=== PATIENT | male | born 1990 ===

== ENCOUNTER 2018-11-09 08:08 | Inpatient (IN) | payer MEDICAID ==
[2018-11-09 08:11] VITALS: BMI 21.2
--- NOTE | 2018-11-09 08:44 | ED PDOC ---
HPI: Psych/Substance Abuse Time Seen by Provider: 11/09/18 08:15 Chief Complaint (Nursing): Psychiatric Evaluation Chief Complaint (Provider): Psychiatric Evaluation History Per: Patient History/Exam Limitations: no limitations Onset/Duration Of Symptoms: Days Current Symptoms Are (Timing): Still Present Modifying Factor(s): Alcohol Associated Symptoms: Suicidal Thoughts. denies: Suicidal Plan Additional Complaint(s): 28 year old male with a past medical history of depression who is presenting to the ED for psychiatric evaluation. Patient states that he has had depression his whole life but admits that he has not seen a psychiatrist in many years. He also admits that he has a history of alcoholism and reports that he dabbles with other drugs. Patient states that he wants to end his life and reports that he is at his wits end. He admits that he was drinking a lot last night and now is presenting with suicidal ideation but no current plan but states that he wants everything to end. Of note, patient adds that he smokes weed and denies any homicidal ideation or hallucinations. He offers no other medical complaints at this time. PMD: none provided Past Medical History Reviewed: Historical Data, Nursing Documentation, Vital Signs Vital Signs: Last Vital Signs Temp 98.9 F 11/09/18 08:11 Pulse 103 H 11/09/18 08:11 Resp 18 11/09/18 08:11 BP 147/98 H 11/09/18 08:11 Pulse Ox 97 11/09/18 08:11 - Medical History PMH: Depression Denies: Chronic Kidney Disease - Surgical History Surgical History: No Surg Hx - Family History Family History: States: Unknown Family Hx - Social History Current smoker - smoking cessation education provided: No Alcohol: > 2 Drinks/Day Drugs: Cannabis, Other ("dabbles in other drugs") - Home Medications Home Medications: Ambulatory Orders Medication Instructions Recorded No Known Home Med 11/09/18 - Allergies Allergies/Adverse Reactions: Allergies Allergy/AdvReac Type Severity Reaction Status Date / Time No Known Allergies Allergy Verified 11/09/18 08:23 Review of Systems ROS Statement: Except As Marked, All Systems Reviewed And Found Negative Psych: Positive for: Suicidal ideation. Negative for: Other (homicidal ideation, hallucinations ) Physical Exam - Reviewed Nursing Documentation Reviewed: Yes Vital Signs Reviewed: Yes - Physical Exam Appears: Positive for: Non-toxic, No Acute Distress (teary eyed, and appears drunk ) Head Exam: Positive for: ATRAUMATIC, NORMAL INSPECTION, NORMOCEPHALIC Skin: Positive for: Normal Color, Warm, DRY Eye Exam: Positive for: EOMI, Normal appearance, PERRL ENT: Positive for: Normal ENT Inspection Neck: Positive for: Normal, Painless ROM Cardiovascular/Chest: Positive for: Regular Rate, Rhythm. Negative for: Murmur Respiratory: Positive for: Normal Breath Sounds. Negative for: Respiratory Distress Gastrointestinal/Abdominal: Positive for: Normal Exam, Soft. Negative for: Tenderness Extremity: Positive for: Normal ROM. Negative for: Deformity, Swelling Neurologic/Psych: Positive for: Alert, Oriented, Mood/Affect (flat ), Gait (st bala). Negative for: Motor/Sensory Deficits - Laboratory Results Result Diagrams: 11/09/18 08:48 11/09/18 08:48 - ECG O2 Sat by Pulse Oximetry: 97 (RA) Pulse Ox Interpretation: Normal Medical Decision Making Medical Decision Making: Time: 8:32 Plan: suicidal ideation, alchohol intox --EKG --Acetaminophen --Alcohol Serum --CMP --Urine Drug Screen --Salicylate --CBC --Urinalysis Patient was placed on a 1:1 Observation for stated suicidal ideation 9:25 Reevaluation: Patient sleeping comfortably in ED in no distress. 11:50 Patient states that he has been banging his head resulting in a headache, corroborated by mother. He is requesting Head CT. Head CT ordered. Head CT: FINDINGS: HEMORRHAGE: No intracranial hemorrhage. BRAIN: No mass effect or edema. No atrophy or chronic microvascular ischemic changes. VENTRICLES: Unremarkable. No hydrocephalus. CALVARIUM: Unremarkable. PARANASAL SINUSES: Large right maxillary sinus retention cyst and/or polyp. No bony erosion or remodeling seen. Much smaller left maxillary sinus retention cyst noted. Prominent rightward nasal septal spurring. MASTOID AIR CELLS: Unremarkable as visualized. No inflammatory changes. OTHER FINDINGS: None. IMPRESSION: No intracranial hemorrhage or mass effect. Right maxillary sinus large retention cyst and/or polyp. Smaller flatter retention cyst left maxillary sinus also suggested. Other findings as above. Pt accepted by Dr Burger for depression Scribe Attestation: Documented by Chanda Grant, acting as a scribe for Evelyn Carrillo MD. Provider Scribe Attestation: All medical record entries made by the Scribe were at my direction and personally dictated by me. I have reviewed the chart and agree that the record accurately reflects my personal performance of the history, physical exam, medical decision making, and the department course for this patient. I have also personally directed, reviewed, and agree with the discharge instructions and disposition. Disposition - Clinical Impression Clinical Impression: Depression - Patient ED Disposition Is Patient to be Admitted: Yes - Disposition Disposition Time: 13:00 Condition: STABLE
[2018-11-09 09:09] LABS: BASO # 0.1 K/uL (0.0-0.2); BASO % 0.5 % (0.0-2.0); EOS % 0.4 % (0.0-4.0); HEMOGLOBIN 16.7 g/dL (12.0-18.0); LYMPH # 1.8 K/uL (1.0-4.3); LYMPH % 17.8 % (20.0-40.0); MEAN CELL VOLUME 96.3 fl (80.0-94.0); MEAN CORPUSCULAR HEMOGLOBIN 31.9 pg (27.0-31.0); MEAN CORPUSCULAR HGB CONC 33.1 g/dL (33.0-37.0); MONO # 0.7 K/uL (0.0-0.8); MONO % 6.5 % (0.0-10.0); NEUT # 7.4 K/uL (1.8-7.0); NEUT % 74.8 % (50.0-75.0); RBC 5.24 Mil/uL (4.40-5.90); RED CELL DISTRIBUTION WIDTH 15.7 % (11.5-14.5); WHITE BLOOD COUNT 9.9 K/uL (4.8-10.8)
[2018-11-09 09:14] LABS: ACETAMINOPHEN < 10.0 ug/ml (10.0-30.0); SALICYLATE < 1.0 mg/dl
[2018-11-09 09:15] LABS: ALB/GLOB RATIO 1.4 (1.0-2.1); ALBUMIN 4.8 g/dL (3.5-5.0); ALT/SGPT 21 U/L (21-72); AST/SGOT 25 U/L (17-59); BLOOD UREA NITROGEN 7 mg/dl (9-20); CALCIUM 8.8 mg/dL (8.4-10.2); GFR NON-AFRICAN AMERICAN > 60
--- NOTE | 2018-11-09 10:31 | CARD ---
APPROVED REPORT Date of service: 11/09/2018 EKG Measurement Heart [id number] <Conclusion> Normal sinus rhythm Rightward axis Borderline ECG
[2018-11-09 11:56] LABS: SQUAMOUS EPITHIAL < 1 /hpf (0-5); URINE BILIRUBIN NEGATIVE (NEGATIVE); URINE BLOOD NEGATIVE (NEGATIVE); URINE CLARITY SLIGHTY-CLOUDY (Clear); URINE COLOR YELLOW (YELLOW); URINE GLUCOSE (UA) NEG (NEGATIVE); URINE LEUKOCYTE ESTERASE NEG Leu/uL (Negative); URINE PROTEIN NEGATIVE (NEGATIVE); URINE UROBILINOGEN 0.2-1.0 mg/dL (0.2-1.0)
[2018-11-09 12:16] LABS: BARBITURATES, UR NEGATIVE (NEGATIVE); BENZODIAZEPINES, UR POSITIVE (NEGATIVE); OPIATES, UR POSITIVE (NEGATIVE); PHENCYCLIDINE, UR NEGATIVE (NEGATIVE)
--- NOTE | 2018-11-09 13:07 | CT ---
Date of service: 11/09/2018 PROCEDURE: CT HEAD WITHOUT CONTRAST. HISTORY: banging head COMPARISON: None available. TECHNIQUE: Axial computed tomography images were obtained through the head/brain without intravenous contrast. Radiation dose: Total exam DLP = 898.42 mGy-cm. This CT exam was performed using one or more of the following dose reduction techniques: Automated exposure control, adjustment of the mA and/or kV according to patient size, and/or use of iterative reconstruction technique. FINDINGS: HEMORRHAGE: No intracranial hemorrhage. BRAIN: No mass effect or edema. No atrophy or chronic microvascular ischemic changes. VENTRICLES: Unremarkable. No hydrocephalus. CALVARIUM: Unremarkable. PARANASAL SINUSES: Large right maxillary sinus retention cyst and/or polyp. No bony erosion or remodeling seen. Much smaller left maxillary sinus retention cyst noted. Prominent rightward nasal septal spurring. MASTOID AIR CELLS: Unremarkable as visualized. No inflammatory changes. OTHER FINDINGS: None. IMPRESSION: No intracranial hemorrhage or mass effect. Right maxillary sinus large retention cyst and/or polyp. Smaller flatter retention cyst left maxillary sinus also suggested. Other findings as above.
[2018-11-09] MEDS ORDERED: DiphenhydrAMINE 50 mg/ml Inj IM PRN (15:09)
[2018-11-09] MEDS ORDERED: Alum-Mag Hydrox-Simethicone Susp (30 mL) PO PRN (15:09)
[2018-11-09] MEDS ORDERED: Magnesium Hydroxide Susp 30 ml UD PO PRN (15:09)
--- NOTE | 2018-11-09 15:53 | CP.PCM.CON ---
<Faiza Aceves - Last Filed: 11/09/18 15:48> History of Present Illness - History of Present Illness History of Present Illness: Hospitalist Consult Note: 28 year old male patient, with PMHx of depression, admitted to psych for depression and suicidal ideation. Patient states that he came to the ED yesterday after "going crazy" and "having crazy thoughts". He states that he drank alcohol yesterday before he came to the ED and while he was intoxicated he banged his head against the wall. He now admits to a bad head ache that he wants to try to sleep off. Unable to obtain full history, patient inebriated at this time. Denies nausea/vomiting/fever/shortness of breath/chest pain/chills, admits to sensitivity to light and headache. PMD: Denies PMHx: Depression PSHx: Denies SHx: Tobacco use (10 cigarettes a day for 15 years), alcohol abuse, illicit drug use "I have dabbled with everything under the sun" ALL: NKDA Review of Systems - Review of Systems Systems not reviewed;Unavailable: Intoxicated - Constitutional Constitutional: Lethargy. absent: Chills - EENT Eyes: As Per HPI - Cardiovascular Cardiovascular: As Per HPI - Respiratory Respiratory: absent: Cough, Wheezing - Gastrointestinal Gastrointestinal: As Per HPI - Genitourinary Genitourinary: As Per HPI - Musculoskeletal Musculoskeletal: As Per HPI - Integumentary Integumentary: As Per HPI - Neurological Neurological: As Per HPI - Psychiatric Psychiatric: Suicidal Ideation - Endocrine Endocrine: As Per HPI - Hematologic/Lymphatic Hematologic: As Per HPI Past Patient History - Infectious Disease Hx of Infectious Diseases: None - Past Social History Smoking Status: Heavy Smoker > 10 Cigarettes Daily Alcohol: > 2 Drinks/Day Drugs: Cannabis, Other ("dabbles in other drugs") - CARDIAC Hx Cardiac Disorders: No Hx Hypertension: No - PULMONARY Hx Tuberculosis: No - NEUROLOGICAL HX Cerebrovascular Accident: No Hx Seizures: No - HEENT Hx HEENT Problems: No - RENAL Hx Chronic Kidney Disease: No - ENDOCRINE/METABOLIC Hx Endocrine Disorders: No - HEMATOLOGICAL/ONCOLOGICAL Hx Cancer: No Hx Human Immunodeficiency Virus (HIV): No - INTEGUMENTARY Hx Dermatological Problems: No - MUSCULOSKELETAL/RHEUMATOLOGICAL Hx Musculoskeletal Disorders: No - GASTROINTESTINAL Hx Gastrointestinal Disorders: No - GENITOURINARY/GYNECOLOGICAL Hx Sexually Transmitted Disorders: No - PSYCHIATRIC Hx Depression: Yes - SURGICAL HISTORY Hx Surgeries: No - ANESTHESIA Hx Anesthesia: No Meds Allergies/Adverse Reactions: Allergies Allergy/AdvReac Type Severity Reaction Status Date / Time No Known Allergies Allergy Verified 11/09/18 08:23 - Medications Medications: Current Medications Acetaminophen (Tylenol 325mg Tab) 650 mg PO Q4 PRN PRN Reason: Pain, moderate (4-7) Last Admin: 11/09/18 15:24 Dose: 650 mg Al Hydrox/Mg Hydrox/Simethicone (Maalox Plus 30 Ml) 30 ml PO Q4 PRN PRN Reason: Dyspepsia Chlordiazepoxide (Librium) 25 mg PO TID HIGINIO Clonidine HCl (Catapres) 0.1 mg PO TID PRN PRN Reason: Opiate reversal Diphenhydramine HCl (Benadryl) 50 mg IM Q6 PRN PRN Reason: Extrapyramidal S/S Unable PO Diphenhydramine HCl (Benadryl) 50 mg PO Q6 PRN PRN Reason: Extrapyramidal Symptoms Gabapentin (Neurontin) 100 mg PO TID HIGINIO Haloperidol (Haldol) 5 mg PO Q4 PRN PRN Reason: Agitation Haloperidol Lactate (Haldol) 5 mg IM Q4 PRN PRN Reason: Agitation, Unable to Take PO Lorazepam (Ativan) 2 mg IM Q4 PRN PRN Reason: Anxiety/Agitation,Unable PO Lorazepam (Ativan) 2 mg PO Q4 PRN PRN Reason: Anxiety/Agitation Magnesium Hydroxide (Milk Of Magnesia) 30 ml PO HS PRN PRN Reason: Constipation Trazodone HCl (Desyrel) 100 mg PO HS HIGINIO Physical Exam - Constitutional Appears: No Acute Distress Additional comments: Patient intoxicated at this time - Head Exam Head Exam: ATRAUMATIC, NORMOCEPHALIC - ENT Exam ENT Exam: Mucous Membranes Moist - Respiratory Exam Respiratory Exam: Clear to Auscultation Bilateral, NORMAL BREATHING PATTERN - Cardiovascular Exam Cardiovascular Exam: Tachycardia, REGULAR RHYTHM - GI/Abdominal Exam GI & Abdominal Exam: Normal Bowel Sounds, Soft - Extremities Exam Extremities exam: Positive for: normal inspection. Negative for: calf tenderness - Back Exam Back exam: CVA tenderness (L), NORMAL INSPECTION - Neurological Exam Neurological exam: Normal Gait, Oriented x3 - Psychiatric Exam Psychiatric exam: Suicidal Ideation - Skin Skin Exam: Warm Results - Vital Signs Recent Vital Signs: Last Vital Signs Temp 98.7 F 11/09/18 14:10 Pulse 86 11/09/18 14:10 Resp 17 11/09/18 14:10 BP 117/58 L 11/09/18 14:10 Pulse Ox 97 11/09/18 14:10 - Labs Result Diagrams: 11/09/18 08:48 11/09/18 08:48 Labs: Laboratory Results - last 24 hr 11/09/18 11/09/18 11/09/18 08:48 08:48 08:48 WBC 9.9 RBC 5.24 Hgb 16.7 Hct 50.5 MCV 96.3 H MCH 31.9 H MCHC 33.1 RDW 15.7 H Plt Count 365 MPV 7.0 L Neut % (Auto) 74.8 Lymph % (Auto) 17.8 L [place] % (Auto) 6.5 Eos % (Auto) 0.4 Baso % (Auto) 0.5 Neut # (Auto) 7.4 H Lymph # (Auto) 1.8 [place] # (Auto) 0.7 Eos # (Auto) 0.0 Baso # (Auto) 0.1 Sodium 147 Potassium 4.4 Chloride 103 Carbon Dioxide 28 Anion Gap 20 BUN 7 L Creatinine 0.8 Est GFR ( Amer) > 60 Est GFR (Non-Af Amer) > 60 Random Glucose 96 Calcium 8.8 Total Bilirubin 0.2 AST 25 ALT 21 Alkaline Phosphatase 65 Total Protein 8.2 Albumin 4.8 Globulin 3.4 Albumin/Globulin Ratio 1.4 Urine Color Urine Clarity Urine pH Ur Specific [place] Urine Protein Urine Glucose (UA) Urine Ketones Urine Blood Urine Nitrate Urine Bilirubin Urine Urobilinogen Ur Leukocyte Esterase Urine RBC (Auto) Urine Microscopic WBC Ur Squamous Epith Cells Salicylates < 1.0 Urine Opiates Screen Urine Methadone Screen Acetaminophen < 10.0 L Ur Barbiturates Screen Ur Phencyclidine Scrn Ur Amphetamines Screen U Benzodiazepines Scrn U Oth Cocaine Metabols U Cannabinoids Screen Alcohol, Quantitative 257 H 11/09/18 11/09/18 11:30 11:30 WBC RBC Hgb Hct MCV MCH MCHC RDW Plt Count MPV Neut % (Auto) Lymph % (Auto) [place] % (Auto) Eos % (Auto) Baso % (Auto) Neut # (Auto) Lymph # (Auto) [place] # (Auto) Eos # (Auto) Baso # (Auto) Sodium Potassium Chloride Carbon Dioxide Anion Gap BUN Creatinine Est GFR ( Amer) Est GFR (Non-Af Amer) Random Glucose Calcium Total Bilirubin AST ALT Alkaline Phosphatase Total Protein Albumin Globulin Albumin/Globulin Ratio Urine Color Yellow Urine Clarity Slighty-cloudy Urine pH 6.0 Ur Specific [place] 1.023 Urine Protein Negative Urine Glucose (UA) Neg Urine Ketones Trace Urine Blood Negative Urine Nitrate Negative Urine Bilirubin Negative Urine Urobilinogen 0.2-1.0 Ur Leukocyte Esterase Neg Urine RBC (Auto) 3 Urine Microscopic WBC 1 Ur Squamous Epith Cells < 1 Salicylates Urine Opiates Screen Positive H Urine Methadone Screen Negative Acetaminophen Ur Barbiturates Screen Negative Ur Phencyclidine Scrn Negative Ur Amphetamines Screen Negative U Benzodiazepines Scrn Positive U Oth Cocaine Metabols Negative U Cannabinoids Screen Positive H Alcohol, Quantitative Assessment & Plan - Assessment and Plan (Free Text) Assessment: 28 year old male patient with PMHx of depression, admitted to psych for depression and suicidal ideation. Plan: 1. Depression/Suicidal Ideation - Management per psych 2. Alcohol Abuse - Management per psych 3. Tobacco use - Management per psych 4. Head trauma - Head CT: No intracranial hemorrhage or mass effect. - C/w pain management, Tylenol - Date & Time Date: 11/09/18 Time: 15:56 <Pat Benton - Last Filed: 11/09/18 17:33> Meds - Medications Medications: Current Medications Acetaminophen (Tylenol 325mg Tab) 650 mg PO Q4 PRN PRN Reason: Pain, moderate (4-7) Last Admin: 11/09/18 15:24 Dose: 650 mg Al Hydrox/Mg Hydrox/Simethicone (Maalox Plus 30 Ml) 30 ml PO Q4 PRN PRN Reason: Dyspepsia Chlordiazepoxide (Librium) 25 mg PO TID HIGINIO Clonidine HCl (Catapres) 0.1 mg PO TID PRN PRN Reason: Opiate reversal Diphenhydramine HCl (Benadryl) 50 mg IM Q6 PRN PRN Reason: Extrapyramidal S/S Unable PO Diphenhydramine HCl (Benadryl) 50 mg PO Q6 PRN PRN Reason: Extrapyramidal Symptoms Gabapentin (Neurontin) 100 mg PO TID HIGINIO Haloperidol (Haldol) 5 mg PO Q4 PRN PRN Reason: Agitation Haloperidol Lactate (Haldol) 5 mg IM Q4 PRN PRN Reason: Agitation, Unable to Take PO Lorazepam (Ativan) 2 mg IM Q4 PRN PRN Reason: Anxiety/Agitation,Unable PO Lorazepam (Ativan) 2 mg PO Q4 PRN PRN Reason: Anxiety/Agitation Magnesium Hydroxide (Milk Of Magnesia) 30 ml PO HS PRN PRN Reason: Constipation Trazodone HCl (Desyrel) 100 mg PO HS HIGINIO Results - Vital Signs Recent Vital Signs: Last Vital Signs Temp 98.7 F 11/09/18 14:10 Pulse 86 11/09/18 14:10 Resp 17 11/09/18 14:10 BP 117/58 L 11/09/18 14:10 Pulse Ox 97 11/09/18 14:10 - Labs Result Diagrams: 11/09/18 08:48 11/09/18 08:48 Labs: Laboratory Results - last 24 hr 11/09/18 11/09/18 11/09/18 08:48 08:48 08:48 WBC 9.9 RBC 5.24 Hgb 16.7 Hct 50.5 MCV 96.3 H MCH 31.9 H MCHC 33.1 RDW 15.7 H Plt Count 365 MPV 7.0 L Neut % (Auto) 74.8 Lymph % (Auto) 17.8 L [place] % (Auto) 6.5 Eos % (Auto) 0.4 Baso % (Auto) 0.5 Neut # (Auto) 7.4 H Lymph # (Auto) 1.8 [place] # (Auto) 0.7 Eos # (Auto) 0.0 Baso # (Auto) 0.1 Sodium 147 Potassium 4.4 Chloride 103 Carbon Dioxide 28 Anion Gap 20 BUN 7 L Creatinine 0.8 Est GFR ( Amer) > 60 Est GFR (Non-Af Amer) > 60 Random Glucose 96 Calcium 8.8 Total Bilirubin 0.2 AST 25 ALT 21 Alkaline Phosphatase 65 Total Protein 8.2 Albumin 4.8 Globulin 3.4 Albumin/Globulin Ratio 1.4 Urine Color Urine Clarity Urine pH Ur Specific [place] Urine Protein Urine Glucose (UA) Urine Ketones Urine Blood Urine Nitrate Urine Bilirubin Urine Urobilinogen Ur Leukocyte Esterase Urine RBC (Auto) Urine Microscopic WBC Ur Squamous Epith Cells Salicylates < 1.0 Urine Opiates Screen Urine Methadone Screen Acetaminophen < 10.0 L Ur Barbiturates Screen Ur Phencyclidine Scrn Ur Amphetamines Screen U Benzodiazepines Scrn U Oth Cocaine Metabols U Cannabinoids Screen Alcohol, Quantitative 257 H 11/09/18 11/09/18 11:30 11:30 WBC RBC Hgb Hct MCV MCH MCHC RDW Plt Count MPV Neut % (Auto) Lymph % (Auto) [place] % (Auto) Eos % (Auto) Baso % (Auto) Neut # (Auto) Lymph # (Auto) [place] # (Auto) Eos # (Auto) Baso # (Auto) Sodium Potassium Chloride Carbon Dioxide Anion Gap BUN Creatinine Est GFR ( Amer) Est GFR (Non-Af Amer) Random Glucose Calcium Total Bilirubin AST ALT Alkaline Phosphatase Total Protein Albumin Globulin Albumin/Globulin Ratio Urine Color Yellow Urine Clarity Slighty-cloudy Urine pH 6.0 Ur Specific [place] 1.023 Urine Protein Negative Urine Glucose (UA) Neg Urine Ketones Trace Urine Blood Negative Urine Nitrate Negative Urine Bilirubin Negative Urine Urobilinogen 0.2-1.0 Ur Leukocyte Esterase Neg Urine RBC (Auto) 3 Urine Microscopic WBC 1 Ur Squamous Epith Cells < 1 Salicylates Urine Opiates Screen Positive H Urine Methadone Screen Negative Acetaminophen Ur Barbiturates Screen Negative Ur Phencyclidine Scrn Negative Ur Amphetamines Screen Negative U Benzodiazepines Scrn Positive U Oth Cocaine Metabols Negative U Cannabinoids Screen Positive H Alcohol, Quantitative Attending/Attestation - Attestation I have personally seen and examined this patient.: Yes I have fully participated in the care of the patient.: Yes I have reviewed all pertinent clinical information: Yes Notes (Text): 11/09/18 17:33 Agree with findings and plan as above.
--- NOTE | 2018-11-09 19:45 | PCM.BM ---
<ChayaNoemi - Last Filed: 11/09/18 19:43> Treatment Plan Problems - Problems identified on initial assessmt Hopelessness/Helplessness Date Initiated: 11/09/18 Time Initiated: 19:43 Assessment reference: NA Status: Active Denial Date Initiated: 11/09/18 Time Initiated: 19:45 Assessment reference: NA Status: Active Knowledge Deficit Alcohol Date Initiated: 11/09/18 Time Initiated: 19:46 Assessment reference: NA Altered Sleep Problems Date Initiated: 11/09/18 Time Initiated: 19:47 Assessment reference: NA Status: Active Treatment assets and liabiliti Patient Assests: cooperative, ADL independent, good support system Patient Liabilities: relationship conflicts, substance abuse - Milieu Protocol Maintain good personal hygiene: daily Encourage regular showers, every shift Remind patient to perform daily oral care, every shift Assist patient to perform ADL's Conduct patient checks and document Observation sheet: Q15 minutes Maintain personal safety: every shift Educate patient to report safety concerns to staff, every shift Monitor environment for contraband/sharps Medication safety: Monitor for expected outcome, potential side effects: every shift, Assess barriers to learning: every shift, Assess readiness for medication education: every shift <Becca Nicole - Last Filed: 11/13/18 12:19> - Diagnosis (1) Bipolar I disorder Status: Acute Interventions: 11/11/18 15:11 psychotherapy, pharmacotherapy (2) Alcohol abuse Status: Acute Interventions: 11/11/18 15:12 motivational therapy <PhilippJoe Carmona - Last Filed: 11/13/18 16:06> Family Contact Family involvement: Family/SO is involved Family contact: Patient agrees to contact, Family has been contacted by patient, Telephone contact initiated by staff Family contact name: Laverne - Cousin Family contacted how many times per week?: 4 Family contact comment: Pan Shover met with pt's cousin (Laverne) and her (Kan) to gain collateral and assess possible progress on the unit. Laverne reported that pt appeared tired and restless. Laverne reported that pt will often cycle in and out of "depression" and these "episodes" will last several days to a week. Laverne reported that pt's child's mother is often the cause of these e pisodes as she is "manipulative" and causes the pt to have a lot of "panic" and "anxiety." Laverne reported that pt and his girlfriend were together for 3 years, but have not been together for about 2 years. Laverne reported that on the night of admission pt called her intoxicated and made suicidal statements that scared her and she convinced pt to come to the hospital for help. Laverne reported that when pt goes through his depressed phases he can become violent toward objects and hurt himself in the process by punching dimas and banging his head. - Goals for Treatment Patient goals for treatment: Pt unable to provide specific treatment goals at this time due to psychosis and delusions of grandeur and poor insight. Patient's family/SO goals for treatment: Pt's family would like pt to be stabilized on medications and to get psychoeducation on pt's diagnosis, expected symptoms and included in discharge planning. Discharge/Continuing Care - Education Needs Education Needs: Family Medication, Family Diagnosis/Disease Process, Family Coping Skills, Family Aftercare Safety Plan, Patient Medication, Patient Diagnosis/Disease Process, Patient Coping Skills, Patient Aftercare Safety Plan - Discharge Discharge Criteria: Tolerates medication w/o severe side effects, Free of Suicidal thoughts, Free of agitation, Normal sleep pattern, Ability to care for self, Reduction of target symptoms Discharge to:: Home, With Family - Treatment Team Participation Patient/Family/SO Statement: 11/13/18 16:05 Pt seen in treatment team on 11/11/18. Pt reported he feels "good." Pt reported he signed himself in for treatment due to suicidal ideations and extreme depression. Pt presented with disorganized, tangential speech. Pt denied current SI/HI and AVT hallucinations. Pt has poor insight and judgment. Discussed with Family/SO: Yes Was Patient/Family/SO present at Treatment Team Meeting: Yes
--- NOTE | 2018-11-10 13:58 | PCM.PSYCH ---
Initial Psychiatric Evaluation - Initial Psychiatric Evaluation Type of Admission: Voluntary Legal Status: Capacity Chief Complaint (in patient's own words): I have been depressed all my life History of Present Illness and Precipitating Events: pt is a 28 ys old male with previous diagnosis of depression and poly substance use , presented to ER with suicidal ideation with plan to overdose on alcohol pt has been increasingly depressed due to financial difficulties, also having conflict with his girl friend , and unable to see his son pt has been feeling worthless, hopeless and helpless, using increasing amounts of alcohol and opiates on the unit pt continues to present with depressed mood and affect, poor motivation, low interest, continues to report passive suicidal ideation without active plan , denied command hallucinations urine toxicology positive for opiates and cannabis Current Medications: Active Medications Generic Name Dose Route Start Last Admin Trade Name Freq PRN Reason Stop Dose Admin Acetaminophen 650 mg 11/09/18 15:09 11/09/18 15:24 Tylenol 325mg Tab PO 650 mg Q4 PRN Administration Pain, moderate (4-7) Al Hydrox/Mg Hydrox/Simethicone 30 ml 11/09/18 15:09 Maalox Plus 30 Ml PO Q4 PRN Dyspepsia Chlordiazepoxide 25 mg 11/09/18 17:00 11/10/18 13:16 Librium PO 25 mg TID HIGINIO Administration Clonidine HCl 0.1 mg 11/09/18 15:16 Catapres PO TID PRN Opiate reversal Diphenhydramine HCl 50 mg 11/09/18 15:09 Benadryl IM Q6 PRN Extrapyramidal S/S Unable PO Diphenhydramine HCl 50 mg 11/09/18 15:09 11/10/18 01:36 Benadryl PO 50 mg Q6 PRN Administration Extrapyramidal Symptoms Diphenhydramine HCl 50 mg 11/10/18 01:33 Benadryl PO HS PRN Sleep Gabapentin 100 mg 11/09/18 17:00 11/10/18 13:15 Neurontin PO 100 mg TID HIGINIO Administration Haloperidol 5 mg 11/09/18 15:09 Haldol PO Q4 PRN Agitation Haloperidol Lactate 5 mg 11/09/18 15:09 Haldol IM Q4 PRN Agitation, Unable to Take PO Lorazepam 2 mg 11/09/18 15:09 Ativan IM Q4 PRN Anxiety/Agitation,Unable PO Lorazepam 2 mg 11/09/18 15:09 Ativan PO Q4 PRN Anxiety/Agitation Magnesium Hydroxide 30 ml 11/09/18 15:09 Milk Of Magnesia PO HS PRN Constipation Trazodone HCl 100 mg 11/09/18 22:00 11/09/18 21:04 Desyrel PO 100 mg HS HIGINIO Administration Past Psychiatric History - Past Psychiatric History Explanation of prior treatment: multiple hospitalizations, hx of non compliance History of ETOH/Drug Use: alcohol opiates cannabis Pertinent Medical Hx (Current Medical&Sleep Prob, Allergies): Allergies Allergy/AdvReac Type Severity Reaction Status Date / Time No Known Allergies Allergy Verified 11/09/18 08:23 No Known Home Med 11/09/18 Mental Status Examination - Personal Presentation Personal Presentation: Looks stated age - Affect Affect: Constricted, Depressed - Motor Activity Motor Activity: Psychomotor Retardation - Reliability in Providing Information Reliability in Providing Information: Fair - Speech Speech: Relevant - Mood Mood: Depressed, Anxious - Formal Thought Process Formal Thought Process: Circumstantial - Obsessions/Compulsions Obsessions: No Compulsions: No - Cognitive Functions Orientation: Person, Place, Situation Sensorium: Alert Attention/Concentration: Easily distracted Abstract Thinking: [place] Judgement: Imparied, as evidence by: Poor judgement, Imparied, as evidence by: Lack of insight into illness - Risk Risk: Suicidal, Withdrawal, Diminished functioning - Strength & Assets Inventory Strength & Assets Inventory: Family support - Limitations Additional comments: poor compliance DSM 5 DX - DSM 5 DSM 5 Diagnosis: major depression/ rule out bipolar disorder depressed opiate dependence alcohol dependence - Recommended/Plan of Treatment Treatment Recommendations and Plan of Treatment: pt will be started on librium protocol and monitored for symtoms and signs of alcohol withdrawal neurontin 100 mg tid seroquel 100mg qhs, increase gradually motivational group and supportive therapy
--- NOTE | 2018-11-11 15:23 | PCM.PYCHPN ---
Psychiatric Progress Note - Psychiatric Progress Note Patient seen today, length of contact: pt evaluated discussed with team chart reviewed Patient Chief Complaint: I could not find my way in life Problems Identified/Issues Discussed: pt evaluated with treatment team, presenting with pressured speech, thought process circumstantial and tangential,affect labile with mood swings at instant laughing alternating with tearful episodes, pt also presenting with grandiose delusions, discussed with pt the need to start mood stabilizer, also discussed impact of alcohol use on current mental status pt continues to report passive suicidal ideation without active plan on the unit, denied perceptual disturbances, denied homicidal ideation Medical Problems: multiple hospitalizations, hx of non compliance DSM 5 Symptoms Update: bipolar I disorder mixed severe alcohol abuse opiate abuse Medication Change: Yes (start abilify) Medical Record Reviewed: Yes Mental Status Examination - Cognitive Function Orientation: Person, Place, Situation Attention: WNL Concentration: WNL Association: WNL Fund of Knowledge: [facility] Decription of patient's judgement and insights: poor insight and judgment - Mood Mood: Depressed, Anxious - Affect Affect: Constricted, Depressed - Speech Speech: Pressured - Formal Thought Process Formal Thought Process: Delusions, Circumstantial Psychotic Thoughts and Behaviors: grandiose delusions - Suicidal Ideation Suicidal Ideation: Yes - Homicidal Ideation Homicidal Ideation: No Goal/Treatment Plan - Goal/Treatment Plan Need for Continued Stay: Severe depression anxiety, Discharge may exacerbated symptoms Progress Toward Problem(s) and Goals/Treatment Plan: discontinue librium. continue with ativan prn while monitoring for symtoms and signs of alcohol withdrawal increase neurontin 200 mg tid discontinue seroquel 100mg qhs, start abilify motivational group and supportive therapy
--- NOTE | 2018-11-12 14:06 | PCM.PYCHPN ---
Psychiatric Progress Note - Psychiatric Progress Note Patient seen today, length of contact: pt evaluated discussed with team chart reviewed Patient Chief Complaint: I am still depressed Problems Identified/Issues Discussed: pt evaluated . presenting with depressed mood and labile affect, over productive speech and grandiose delusions, isolates himself in his room, encouraged pt to attend groups, no reported side effects of medications , pt continues to report passive suicidal ideation without active plan on the unit, denied perceptual disturbances, denied homicidal ideation Medical Problems: multiple hospitalizations, hx of non compliance DSM 5 Symptoms Update: bipolar I disorder mixed severe with psychotic features opiate abuse alcohol abuse cannabis abuse Medication Change: No Medical Record Reviewed: Yes Mental Status Examination - Cognitive Function Orientation: Person, Place, Situation Attention: WNL Concentration: WNL Association: WNL Fund of Knowledge: WN Decription of patient's judgement and insights: poor insight and judgment - Mood Mood: Depressed, Anxious - Affect Affect: Constricted, Depressed - Speech Speech: Pressured - Formal Thought Process Formal Thought Process: Delusions, Circumstantial Psychotic Thoughts and Behaviors: grandiose delusions - Suicidal Ideation Suicidal Ideation: Yes - Homicidal Ideation Homicidal Ideation: No Goal/Treatment Plan - Goal/Treatment Plan Need for Continued Stay: Severe depression anxiety, Discharge may exacerbated symptoms Progress Toward Problem(s) and Goals/Treatment Plan: abilify 10mg daily neurontin 200 mg tid motivational group and supportive therapy
[2018-11-12 21:44] VITALS: O2SAT 99
--- NOTE | 2018-11-13 12:25 | PCM.PYCHPN ---
Psychiatric Progress Note - Psychiatric Progress Note Patient seen today, length of contact: pt evaluated discussed with team chart reviewed Patient Chief Complaint: I have lots of goals in life Problems Identified/Issues Discussed: pt evaluated . presenting labile affect, speech overproductive with circumstantial thought process, and grandiose delusions,discussed gradual increase in the dose of abilify, motivational therapy provided in reference to effect of opiate and alcohol use on current mental status pt continues to report passive suicidal ideation without active plan on the unit, denied perceptual disturbances, denied homicidal ideation Medical Problems: multiple hospitalizations, hx of non compliance DSM 5 Symptoms Update: bipolar II disorder mixed severe Medication Change: Yes (increase abilify) Medical Record Reviewed: Yes Mental Status Examination - Cognitive Function Orientation: Person, Place, Situation Attention: WNL Concentration: WNL Association: WNL Fund of Knowledge: WN Decription of patient's judgement and insights: poor insight and judgment - Mood Mood: Depressed, Anxious - Affect Affect: Constricted, Depressed - Speech Speech: Pressured - Formal Thought Process Formal Thought Process: Delusions, Circumstantial Psychotic Thoughts and Behaviors: grandiose delusions - Suicidal Ideation Suicidal Ideation: No - Homicidal Ideation Homicidal Ideation: No Goal/Treatment Plan - Goal/Treatment Plan Need for Continued Stay: Severe depression anxiety, Discharge may exacerbated symptoms Progress Toward Problem(s) and Goals/Treatment Plan: increase abilify gradually decrease neurontin 100 mg tid/ prn motivational group and supportive therapy
--- NOTE | 2018-11-14 12:33 | PCM.PYCHPN ---
Psychiatric Progress Note - Psychiatric Progress Note Patient seen today, length of contact: pt evaluated discussed with team chart reviewed Patient Chief Complaint: I want to take care of my mental health Problems Identified/Issues Discussed: pt evaluated .speech less pressured, thought process circumstantial but more goal directed, continues to have grandiose thoughts, psycho education provided about the bipolar disorder diagnosis and motivational therapy provided about effect of substance use and its effect on the prognosis pt reporting improved mood and denied any current active thoughts of self harm, reported decreased sleep with early insomnia discussed increasing dose of trazodone , pt denied perceptual disturbances, denied homicidal ideation Medical Problems: multiple hospitalizations, hx of non compliance DSM 5 Symptoms Update: bipolar disorder MRE mixed severe cannabis abuse alcohol abuse opiate abuse Medication Change: No (increase abilify) Medical Record Reviewed: Yes Mental Status Examination - Cognitive Function Orientation: Person, Place, Situation Attention: WNL Concentration: WNL Association: WNL Fund of Knowledge: [facility] Decription of patient's judgement and insights: poor insight and judgment - Mood Mood: Anxious - Affect Affect: Broad - Speech Speech: Pressured - Formal Thought Process Formal Thought Process: Delusions, Circumstantial Psychotic Thoughts and Behaviors: grandiose delusions - Suicidal Ideation Suicidal Ideation: No - Homicidal Ideation Homicidal Ideation: No Goal/Treatment Plan - Goal/Treatment Plan Need for Continued Stay: Severe depression anxiety, Discharge may exacerbated symptoms Progress Toward Problem(s) and Goals/Treatment Plan: abilify 20 mg qhs neurontin 100 mg tid/ prn motivational group and supportive therapy
[2018-11-15 10:27] VITALS: BP 146/85; PULSE 72; RESP 17; TEMP 97.1
--- NOTE | 2018-11-15 11:37 | PCM.PYCHDC ---
Mental Status Examination - Mental Status Examination Orientation: Person, Place, Situation Memory: Intact Mood: Neutral Affect: Broad Speech: Appropriate Attention: WNL Concentration: WNL Association: WNL Fund of Knowledge: WNL Formal Thought Process: No Impairment Description of patient's judgement and insight: partial insight and fair judgment Psychotic Thoughts and Behaviors: pt on dischage denied perceptual disturbances non elicited Suicidal Ideation: No Current Homicidal Ideation?: No Discharge Summary - Discharge Note Reason for Hospitalization: pt is a 28 ys old male with previous diagnosis of depression and poly substance use , presented to ER with suicidal ideation with plan to overdose on alcohol pt has been increasingly depressed due to financial difficulties, also having conflict with his girl friend , and unable to see his son pt has been feeling worthless, hopeless and helpless, using increasing amounts of alcohol and opiates on the unit pt continues to present with depressed mood and affect, poor motivation, low interest, continues to report passive suicidal ideation without active plan , denied command hallucinations urine toxicology positive for opiates and cannabis Consultations:: List each consultation separately and include: 1. Reason for request. 2. Findings. 3. Follow-up Summary of Hospital Course include:: 1. Description of specific treatment plan utilized for patients during their course of treatmen. 2. Summarize the time- course for resolution of acute symptoms and/or regressed behaviors. 3. Describe issues identified and worked on during hospitalization. 4. Describe medication utilized. 5. Describe medical problems identified and treated. 6. Reassessment of suicide risk Summary of Hospital Course: pt i on admission presented with mixed episode, depressed mood , increased irritability, labile affect, and grandiose delusions pt was placed on librium and clonidine protocol/ monitored for symptoms and signs of withdrawal pt was placed on abilify it was increase gradually to 20mg qhs psycho education provided n reference to diagnosis and medication compliance motivational therapy provided in reference to substance use pt was compliant with treatment attended groups , no reported side effects of medications on discharge mental status was stable pt denied suicidal or homicidal ideation denied perceptual disturbances follow up arranged by mental health social worker at [facility] - Diagnosis (1) Bipolar I disorder Current Visit: Yes Status: Acute (2) Alcohol abuse Current Visit: Yes Status: Acute - Final Diagnosis (DSM 5) Condition upon Discharge: STABLE DSM 5: bipolar II disorder MRE mixed severe with psychotic features cannabis use disorder alcohol use disorder opiate abuse Disposition: HOME/ ROUTINE Follow-up Treatment Plan: abilify 20 mg qhs neurontin 100 mg tid/ prn motivational group and supportive therapy Prescriptions/Medication Reconciliation: ARIPiprazole [Abilify] 20 mg PO HS 30 Days #60 tab Gabapentin [Neurontin] 100 mg PO TID PRN 30 Days #90 cap PRN Reason: Anxiety Nicotine 14 mg/24 hr [Nicoderm CQ] 1 patch TD DAILY 30 Days #30 patch traZODone [Desyrel] 200 mg PO HS 30 Days #60 tab - Antipsychotic Medications Pt discharged on 2 or more routine antipsychotic medications: No
== END 2018-11-15 12:25 | disposition home or self-care (01) | DRG 430 ==
LOC: H.ER 08:08 → H.ERHOLD 12:27 → H.PSYCH 14:20
PROVIDERS: ADMIT Psychiatry & Neurology Psychiatry; ATTEND Psychiatry & Neurology Psychiatry
PROC: GZHZZZZ Group Psychotherapy (ICD-10-PCS; principal; 2018-11-09)
PROC: GZ58ZZZ Individual Psychotherapy, Cognitive-Behavioral (ICD-10-PCS; 2018-11-09)
PROC: HZ52ZZZ Individual Psychotherapy for Substance Abuse Treatment, Cognitive-Behavioral (ICD-10-PCS; 2018-11-09)
DX: F31.64 Bipolar disorder, current episode mixed, severe, with psychotic features (principal); F11.20 Opioid dependence, uncomplicated; F10.229 Alcohol dependence with intoxication, unspecified; Y90.8 Blood alcohol level of 240 mg/100 ml or more; F31.81 Bipolar II disorder; F12.10 Cannabis abuse, uncomplicated; R45.851 Suicidal ideations; F41.9 Anxiety disorder, unspecified; F17.210 Nicotine dependence, cigarettes, uncomplicated; Z91.19 Patient's noncompliance with other medical treatment and regimen; Z59.8 Other problems related to housing and economic circumstances

== ENCOUNTER 2019-01-07 19:10 | Emergency (ER) | payer MEDICAID ==
[2019-01-07 19:31] VITALS: BP 146/77; PULSE 88; RESP 18; TEMP 98.8; O2SAT 99
--- NOTE | 2019-01-07 20:36 | ED PDOC ---
HPI: General Adult Time Seen by Provider: 01/07/19 19:28 Chief Complaint (Nursing): ENT Problem Chief Complaint (Provider): ENT Problem History Per: Patient History/Exam Limitations: no limitations Onset/Duration Of Symptoms: Days Current Symptoms Are (Timing): Still Present Additional Complaint(s): Patient is a 28 y/o male with no significant PMHx who presents to the ED for evaluation of right ear pain for over a week. Patient states two weeks ago he went swimming. Patient reports he has been using over the counter ear drops and q-tips to clean out ear for relief, but indicated no relief of pain. Patient denies fever, chills, bleeding, and trauma. PCP: None Provided Past Medical History Reviewed: Historical Data, Nursing Documentation, Vital Signs Vital Signs: Last Vital Signs Temp 98.8 F 01/07/19 19:29 Pulse 88 01/07/19 19:29 Resp 18 01/07/19 19:29 BP 146/77 01/07/19 19:29 Pulse Ox 99 01/07/19 19:29 - Medical History PMH: No Chronic Diseases - Surgical History Surgical History: No Surg Hx - Family History Family History: States: No Known Family Hx - Home Medications Home Medications: Ambulatory Orders Medication Instructions Recorded Neomycin/Polymyxin/Hydrocortis 3 drop AD TID #1 bottle 01/07/19 [Cortisporin Otic Susp] - Allergies Allergies/Adverse Reactions: Allergies Allergy/AdvReac Type Severity Reaction Status Date / Time No Known Allergies Allergy Verified 01/07/19 19:25 Review of Systems ROS Statement: Except As Marked, All Systems Reviewed And Found Negative Constitutional: Negative for: Fever, Chills ENT: Positive for: Ear Pain (right). Negative for: Ear Discharge (bleeding) Physical Exam - Reviewed Nursing Documentation Reviewed: Yes Vital Signs Reviewed: Yes - Physical Exam Appears: Positive for: No Acute Distress Head Exam: Positive for: ATRAUMATIC, NORMAL INSPECTION, NORMOCEPHALIC Skin: Positive for: Normal Color, Warm, DRY Eye Exam: Positive for: EOMI, Normal appearance, PERRL ENT: Positive for: Normal ENT Inspection, Other (R ear canal with moderate erythema and minimal edema; R ear canal with cerumen but no impaction; R TM not fully visualized due to cerumen; L ear canal without erythema, exudates, or edema but with cerumen (not impacted); L TM not fully visualized ) Neck: Positive for: Normal, Painless ROM, Supple Respiratory: Negative for: Respiratory Distress Neurological/Psych: Positive for: Awake, Alert, Oriented (x3) - ECG O2 Sat by Pulse Oximetry: 99 (RA) Pulse Ox Interpretation: Normal Medical Decision Making Medical Decision Making: Time: 1939 Patient informed of possible infection in right ear. Patient instructed to avoid using q-tips. Patient will be given referral to Dr. Mead, ENT specialist. Patient advised to return to ED if symptoms worsen. Scribe Attestation: Documented by Juan Romero, acting as a scribe Andrew Sy PA-C. Provider Scribe Attestation: All medical record entries made by the Scribe were at my direction and personally dictated by me. I have reviewed the chart and agree that the record accurately reflects my personal performance of the history, physical exam, medical decision making, and the department course for this patient. I have also personally directed, reviewed, and agree with the discharge instructions and disposition. Disposition - Clinical Impression Clinical Impression: Otitis externa - Patient ED Disposition Is Patient to be Admitted: No - Disposition Referrals: [facility] [Outside] Ketan Mead MD [Staff Provider] - Disposition: Routine/Home Disposition Time: 19:50 Condition: STABLE Additional Instructions: FOLLOW UP WITH [facility] OR DR. MEAD (ENT) FOR FURTHER EVALUATION RETURN TO ED IMMEDIATELY IF SYMPTOMS WORSEN SOHAN ROJAS, thank you for letting us take care of you today. Your provider was Toyin Morrison MD and you were treated for RT EAR PAIN. The emergency medical care you received today was directed at your acute symptoms. If you were prescribed any medication, please fill it and take as directed. It may take several days for your symptoms to resolve. Return to the Emergency Department if your symptoms worsen, do not improve, or if you have any other problems. Please contact your doctor or call one of the physicians/clinics you have been referred to that are listed on the Patient Visit Information form that is included in your discharge packet. Bring any paperwork you were given at discharge with you along with any medications you are taking to your follow up visit. Our treatment cannot replace ongoing medical care by a primary care provider outside of the emergency department. Thank you for allowing the [facility] team to be part of your care today. If you had an X-Ray or CT scan: A Radiologist will review the ED reading if any change in treatment is needed we will contact you. If you had a blood, urine, or wound culture: It will take several days for the results, if any change in treatment is needed we will contact you. If you had an STI test: It will take 48 hours for the results. Please call after 1 week if you have not heard back. Prescriptions: Neomycin/Polymyxin/Hydrocortis [Cortisporin Otic Susp] 3 drop AD TID #1 bottle Instructions: Outer Ear Infection Forms: [employer] (Armenian)
== END 2019-01-07 19:48 | disposition home or self-care (01) ==
LOC: H.ER 19:10 → MERGE 19:10 → EDSEX 19:10 → EDBD 19:10 → H.ER 19:48
DX: H60.91 Unspecified otitis externa, right ear (principal)